=== PATIENT | female | born 1985 | race Caucasian/White ===

== ENCOUNTER 2021-12-18 08:19 | Emergency (ER) | payer MEDICAID ==
[~2021-12-18] VITALS: Ht 166.4 cm; Wt 81.4 kg
[2021-12-18 08:24] VITALS: BP 125/77
--- NOTE | 2021-12-18 08:34 | NUR ---
PT AMB TO BED 11.
--- NOTE | 2021-12-18 08:40 | NUR ---
36 Y/O FEMALE C/O VAGINAL PAIN, SORE THROAT, URINE IRRITATION X 3 DAYS. PT STATES 8/10 PAIN. STATES VAGINAL DISCHARGE. MEDHX: DENIES NKA
--- NOTE | 2021-12-18 10:03 | NUR ---
Pelvic exam performed by DR CHARLTON with FEMALE CRITICAL CARE UNIT NURSE, KEVEN KEYS at bedside for entire examination. Patient tolerated procedure WELL. Patient assisted to position of comfort after examination.
[2021-12-18 11:03] LABS: APPEARANCE,URINE CLEAR (CLEAR); BILIRUBIN,URINE NEGATIVE (NEGATIVE); BLOOD, URINE NEGATIVE (NEGATIVE); COLOR,URINE YELLOW (YELLOW); LEUKOCYTE ESTERASE ,URINE NEGATIVE (NEGATIVE); NITRITE, URINE NEGATIVE (NEGATIVE); UGLUCOSE NEGATIVE (NEGATIVE)
[2021-12-18] MEDS ORDERED: LIDO100S VG (11:20)
[2021-12-18] MEDS ORDERED: ACYC400T14 PO (11:20)
[2021-12-18 11:26] VITALS: BP 122/75
--- NOTE | 2021-12-18 11:26 | NUR ---
Patient discharged with v/s stable. Written and verbal after care instructions given and explained. Patient alert, oriented and verbalized understanding of instructions. Ambulatory with steady gait. All questions addressed prior to discharge. ID band removed. Patient advised to follow up with PMD. Rx of ZOVIRAX AND LIDOCAINE given. Patient educated on indication of medication including possible reaction and side effects. Opportunity to ask questions provided and answered.
== END 2021-12-18 11:24 | disposition home or self-care (01) ==
LOC: MED 08:19
DX: A60.09 Herpesviral infection of other urogenital tract (principal)
CPT/HCPCS: 36415; 81002; 81003; 81025; 87070; 87205; 87210; 87491; 99284